=== PATIENT | female | born 1985 | race Caucasian/White ===

== ENCOUNTER 2022-08-06 00:26 | Day surgery (SDC) | payer OTHER, SELFPAY ==
[2022-07-29 13:17] VITALS: BMI 28.3
--- NOTE | 2022-07-29 13:39 | SUR.PREOP ---
Report to the Outpatient Waiting Room, entrance under the green pavilion located off [facility], at time 0630 on date 08/06/2022. Planned Procedure Time: 0830. Time changes happen often and if your time is changed the preop area will call you the afternoon before. - You and your visitor will be asked to self-screen and do not enter if you have any COVID symptoms. - Only one visitor is requested with a max of two and NO children visitors are allowed at this time. - The patient visitor may be requested to leave or wait in car when not with patient due to distancing restrictions. - A mask is optional within the hospital at this time. Patients may have clear liquids (water, carbonated beverages, clear teas, apple juice) until 3 hours prior to surgery with a maximum of 20 ounces- 0530. - No food from midnight until time of surgery - Infants may have breast milk until 4 hours before surgery, infant formula 6 hours prior to surgery. - Children will be allowed to drink immediately following surgery. If applicable, please bring a bottle or sippy cup to assist with drinking. Juice, water, soda, and popsicles are readily available. For infants on formula, please bring formula the day of surgery. Pacifiers are allowed. Take the following medications with a SIP of water the morning of surgery: Lexapro, Xanax as needed DO NOT STOP ANY OF YOUR OTHER PRESCRIPTION MEDICATIONS PRIOR TO SURGERY ?EXCEPT THE FOLLOWING Medications to discontinue per physician: Vitamins Date to take last dose: 08/02/2022 Please no make-up, nail salvadorean, hairspray, perfume, deodorant, or body powder the day of surgery. No jewelry (including any body piercings) or valuables the day of surgery, leave them at home. Please take a shower or bath the night before, or the morning of, surgery with an antibacterial soap. Wear comfortable, loose fitting clothing. Children are encouraged to wear pajamas. - Jewelry must be removed prior to entering the operating room. Rings and piercings that are not removed may be cut off. - The hospital will not accept responsibility for valuables. - Please leave all valuables, including medications, at home the day of surgery. If you are going home after surgery, a licensed starting gate driver must drive you home. - NO public transportation without another adult if you receive anesthesia. - We recommend that an adult stay with you for 24 hours following discharge. - We also recommend that you do not drive, make important decision, drink alcoholic beverages, or take any drugs that were not prescribed by your health care provider for at least 24 hours after your discharge time. For Pediatric surgeries, we recommend two adults accompany the child home. Follow any additional instructions given to you from your surgeon. If you or anyone in your household have experienced Covid symptoms in the past week, please notify your surgeon or the nurse liaison at the phone number below for possible testing. Telephone instructions given to patient and asked if any additional questions and then verbalized understanding. Patient advised to call surgeon office or pre surgery nurse liaison [phone] if any additional questions.
[2022-08-06] VITALS (9 sets, daily range): BP systolic 93–115; BP diastolic 42–71; PULSE 59–87; RESP 12–18; TEMP 36.4–36.9; O2SAT 99–100
[2022-08-06] MEDS: GABAPENTIN 300 MG CAPSULE PO (06:50)
[2022-08-06] MEDS: ACETAMINOPHEN 500 MG TABLET 1000 MG PO (06:50)
[2022-08-06] MEDS: LACTATED RINGERS 1,000 ML 30 ML IV CONT ×2 (07:00→09:09)
--- NOTE | 2022-08-06 08:07 | PM.IMHP ---
H&P: HPI History of Present Illness Date/Time: 08/06/22 08:07 Chief Complaint: I'm here to have my tubes out Narrative: Prachi presents for diagnostic laparoscopy, bilateral salpingectomy due to undesired fertility and desiring permanent sterilization Review of Systems Review of Systems: All systems reviewed & are unremarkable except as noted in HPI and below PMFSH Past Medical History Medical History (Updated 08/06/22 @ 08:09 by Tg Chau DO) Former smoker Recurrent sinusitis Family History Family History Mother Family history of mental disorder Family history of malignant neoplasm Family history of chronic obstructive pulmonary disease Father Family history of coronary artery disease Family history of heart disease in male family member before age 55 Other Hypertension Social History Social History Smoking packs per day: 1 Smoking cigarettes per day: 20.0 Years smoked: 10 Smoking pack-years: 10.00 Smoking status: Current every day smoker Tobacco type: e-cigarettes/vaping Second hand tobacco smoke exposure: No Smoking end date: 05/26/10 Additional smoking assessment comments: currently vaping daily Alcohol intake: current Alcohol use details: Very rare- once or twice per year Substance use: former Substance use type: marijuana Last use: years ago Living arrangements: with family Gender identity (if verbalized by the patient): Female Spiritual care concerns: No Meds Home Medications and Allergies Home Medications Medication Instructions Recorded Confirmed Type escitalopram oxalate 10 mg tablet 20 mg PO DAILY 04/06/19 08/06/22 History (Lexapro) alprazolam 0.25 mg tablet (Xanax) 0.25 mg PO PRN PRN ANXIETY 04/21/19 08/06/22 History ergocalciferol (vitamin D2) 1,250 See Rx Instructions .Route .COMPLEX 07/29/22 08/06/22 History mcg (50,000 unit) capsule folic acid 1 mg tablet 1 mg PO DAILY 07/29/22 08/06/22 History omega 6-ivc-nhw-fish oil 60 mg-90 1 cap PO DAILY 07/29/22 08/06/22 History mg-500 mg capsule (Fish Oil) Allergies Allergy/AdvReac Type Severity Reaction Status Date / Time No Known Allergies Allergy Verified 07/29/22 13:13 Vital Signs Vital Signs - 24 hr 08/06/22 07:29 08/06/22 07:32 Temperature 36.9 C Pulse Rate 59 L Respiratory Rate 16 Blood Pressure 96/42 L 95/45 L Pulse Oximetry 99 Oxygen Delivery Room Air Exam Const: General: comfortable and no acute distress HENMT: Mouth: Yes moist mucous membranes Eyes: General: appearance normal, both eyes and all related structures Neck: Neck: supple Thyroid: thyroid normal Resp: Effort & Inspection: normal respiratory effort Auscultation: clear to auscultation bilaterally Cardio: Rate: regular rate Rhythm: regular rhythm GI: GI Palp: Yes Soft to palpation Auscultation: normal bowel sounds Skin: General skin exam: normal color and no rashes or lesions noted Neuro: General: gait normal Speech: normal speech Motor exam (neuro): 5/5 motor strength present throughout Assessment and Plan Assessment and plan (1) Sterilization: Code(s): Z30.2 - Encounter for sterilization Status: Acute Assessment and Plan: Desires permanent sterilization Plan Diagnostic laparoscopy, bilateral salpingectomy Quality VTE Prophylaxis VTE prophylaxis: mechanical ordered
--- NOTE | 2022-08-06 08:09 | WPDHPUPDATE1 ---
History and Physical Update Update Date/Time: 08/06/22 08:09 History and Physical has been reviewed, including an updated exam of the patient. There are NO changes in the patient's condition. Risks, benefits, and alternatives have been discussed and questions answered. Patient agrees to proceed with procedure.
--- NOTE | 2022-08-06 08:11 | WPDANESEPPF ---
Anes - Initial Pre Proc Eval Procedure: Operation Date: 08/06/22 08:30 Proposed Procedures p Diagnostic Laparoscopy, Bilateral Salpingectomy - Tg Chau DO Date/Time: 08/06/22 08:11 Surgeon: Tg Chau DO Pre Op Diagnosis: desires surgical sterility Patient Data Age: 36 Gender: F Height: 1.47 m Weight: 63.2 kg Last Vital Signs Temp 36.9 C 08/06/22 07:29 Pulse 59 L 08/06/22 07:29 Resp 16 08/06/22 07:29 BP 95/45 L 08/06/22 07:32 Pulse Ox 99 08/06/22 07:29 O2 Del Method Room Air 08/06/22 07:29 Allergies Allergy/AdvReac Type Severity Reaction Status Date / Time No Known Allergies Allergy Verified 07/29/22 13:13 Home Medications Medication Instructions Recorded Confirmed Type escitalopram oxalate 10 mg tablet 20 mg PO DAILY 04/06/19 08/06/22 History (Lexapro) alprazolam 0.25 mg tablet (Xanax) 0.25 mg PO PRN PRN ANXIETY 04/21/19 08/06/22 History ergocalciferol (vitamin D2) 1,250 See Rx Instructions .Route .COMPLEX 07/29/22 08/06/22 History mcg (50,000 unit) capsule folic acid 1 mg tablet 1 mg PO DAILY 07/29/22 08/06/22 History omega 8-hxg-auf-fish oil 60 mg-90 1 cap PO DAILY 07/29/22 08/06/22 History mg-500 mg capsule (Fish Oil) Patient hx anesthesia problems: none Family hx anesthesia problems: none Results Review: All pre-operative results and documents have been reviewed as part of the pre-operative evaluation. [facility] Past Medical History Medical History Former smoker Recurrent sinusitis Surgical History Surgical History (Updated 08/06/22 @ 08:11 by Dameon Blanco MD) H/O breast biopsy Family History Family History Mother Family history of mental disorder Family history of malignant neoplasm Family history of chronic obstructive pulmonary disease Father Family history of coronary artery disease Family history of heart disease in male family member before age 55 Other Hypertension Social History Social History Smoking packs per day: 1 Smoking cigarettes per day: 20.0 Years smoked: 10 Smoking pack-years: 10.00 Smoking status: Current every day smoker Tobacco type: e-cigarettes/vaping Second hand tobacco smoke exposure: No Smoking end date: 05/26/10 Additional smoking assessment comments: currently vaping daily Alcohol intake: current Alcohol use details: Very rare- once or twice per year Substance use: former Substance use type: marijuana Last use: years ago Living arrangements: with family Gender identity (if verbalized by the patient): Female Spiritual care concerns: No Anes - Eval Final PreProcedure Day of Procedure 08/06/22 08:11 Patient weight: overweight Heart: regular rate and rhythm Lungs: clear to auscultation Airway: Mallampati scale class II Neurological: alert and oriented Last oral intake: >/= 8 hours ASA classification: II Emergent: no Anesthetic plan: proceed Anesthesia type and monitoring: general ETT and standard monitoring Results Review: All pre-operative results and documents have been reviewed as part of the pre-operative evaluation. Informed Consent: The patient's anesthetic plan and its attendant risks and benefits were discussed with the patient/family/POA. Questions were solicited and answers provided to the satisfaction of the patient/family/POA.
[2022-08-06] MEDS: BUPIVACAINE/EPINEPHRINE 0.25% 50 ML VIAL INFILTRATE (08:48)
--- NOTE | 2022-08-06 09:07 | P.OP_ITS ---
Procedure Note - Detailed Date of Procedure 08/06/22 Pre-op Diagnosis desires surgical sterility Post-op Diagnosis Same Procedure Performed Diagnostic laparoscopy, bilateral salpingectomy Surgeon Tg Chau DO All Source Intelligence Analyst Leandra Anesthesia General Indications Desires permanent sterilization Findings Normal appearing vulva and vaginal canal, medium sized cervix. Normal appearing pelvic organs, normal bowel, liver and gallbladder. Description of Procedure The patient was taken to the operating room where she was placed under general anesthesia. She was prepped and draped in the normal sterile fashion in a dorsal lithotomy position. No preoperative antibiotics were indicated. A time- out was performed a speculum was placed in the vagina. The anterior lip of the cervix was grasped with a long Allis clamp and the cervix was sequentially dilated up to accommodate a Kroner uterine manipulator. Once this was placed, the speculum was removed gloves were changed and attention was then turned to the abdomen. Skin above the umbilicus was grasped with 2 penetrating towel clamps and injected with local. A small incision was made and a Veress needle was introduced. Saline water drop test was performed to confirm intraperitoneal placement. The abdomen was then filled with CO2 to a pressure of 15 mmHg. A 5 mm trocar was then introduced under direct visualization. Survey of the abdomen revealed no evidence of bowel or vascular injury upon entry. The patient was then placed in steep Trendelenburg position. Survey of the pelvis revealed the above-mentioned findings. Additional port sites in the right and left lower quadrants were identified, injected and incised. 5 mm trocars were introduced under direct visualization. The right tube was then elevated and was cauterized and transected off using the LigaSure. The tube was then removed through the senior sales assistant trocar. The procedure was repeated in identical fashion on the left-hand side. The surgical pedicles were reinspected and found to be hemostatic. The instruments and the trocars were removed. All the CO2 insufflation was allowed to escape from the abdomen. The abdominal incisions were closed with 4-0 monocryl in a subcuticular fashion and covered with dermabond. The uterine manipulator was removed. The patient was taken to the recovery room in stable condition. All instrument and sponge counts were correct at the conclusion of the procedure. Estimated Blood Loss 5 IV Fluids 1,300 Drains No Packing No Pathology Yes (bilateral fallopian tubes) Complications No immediate complications Condition Stable Disposition PACU
--- NOTE | 2022-08-06 10:33 | SUR.PHASEII ---
1033- Call to Dr. Blanco for Ibuprofen per patient's request. Per Dr. Blanco order 600MG oral Ibuprofen once.
[2022-08-06] MEDS: IBUPROFEN 600 MG TABLET PO (10:44)
== END 2022-08-06 10:53 | disposition home or self-care (01) ==
PROVIDERS: PCP Family Medicine; Visit Provider Obstetrics & Gynecology Gynecologic Oncology
PROC: (CPT 49320; principal; 2022-08-06 08:30)
DX: Z30.2 Encounter for sterilization (principal); F17.290 Nicotine dependence, other tobacco product, uncomplicated
CPT/HCPCS: 58661; 88302; A9270; J0330; J1100; J2250; J2405; J2704; J3010; J7030; J7120

== ENCOUNTER 2023-01-12 13:59 | Emergency (ER) | payer OTHER, SELFPAY ==
[2023-01-12 14:14] VITALS: BP 108/55; PULSE 79; RESP 18; TEMP 36.9; O2SAT 97
--- NOTE | 2023-01-12 14:28 | ED.GENADULT ---
HPI - General Adult General Chief complaint: Unspecified Stated complaint: well adult check Time Seen by Provider: 01/12/23 14:28 Source: patient Mode of arrival: ambulatory Limitations: no limitations History of Present Illness HPI narrative: 37-year-old female patient presents to the [facility] requesting a work note. Patient states nothing is wrong with her today she is requesting a note stating she was seen at this facility today because her employer requires it. Patient does not have any complaints. Patient states she does not want to get written up which is why she is requesting a note. Related Data Home Medications Medication Instructions Recorded Confirmed escitalopram oxalate 10 mg tablet 20 mg PO DAILY 04/06/19 01/12/23 (Lexapro) alprazolam 0.25 mg tablet (Xanax) 0.25 mg PO PRN PRN ANXIETY 04/21/19 01/12/23 ergocalciferol (vitamin D2) 1,250 See Rx Instructions .Route .COMPLEX 07/29/22 08/06/22 mcg (50,000 unit) capsule folic acid 1 mg tablet 1 mg PO DAILY 07/29/22 01/12/23 omega 7-vty-ifc-fish oil 60 mg-90 1 cap PO DAILY 07/29/22 08/06/22 mg-500 mg capsule (Fish Oil) Allergies Allergy/AdvReac Type Severity Reaction Status Date / Time No Known Allergies Allergy Verified 01/12/23 14:18 Review of Systems Review of Systems: CONSTITUTIONAL: Denies fever, chills, or sweats. EYES: Denies visual changes, redness, or discharge. ENT: Denies rhinorrhea, congestion, sore throat, or otalgia. CARDIOVASCULAR: Denies chest pain, palpitations, or edema. RESPIRATORY: Denies cough or dyspnea. GASTROINTESTINAL: Denies abdominal pain, nausea, vomiting, or diarrhea. GENITOURINARY: Denies dysuria or hematuria. SKIN: Denies rash or itching. MUSCULOSKELETAL: Denies back pain, joint pain, or myalgia. NEUROLOGIC: Denies headache, numbness, or weakness. PSYCHIATRIC: Denies anxiety or depression. [facility] Past Medical History Medical History Former smoker Recurrent sinusitis Surgical History Surgical History H/O breast biopsy Family History Family History Mother Family history of mental disorder Family history of malignant neoplasm Family history of chronic obstructive pulmonary disease Father Family history of coronary artery disease Family history of heart disease in male family member before age 55 Other Hypertension Social History Social History Smoking packs per day: 1 Smoking cigarettes per day: 20.0 Years smoked: 10 Smoking pack-years: 10.00 Smoking status: Current every day smoker Tobacco type: e-cigarettes/vaping Second hand tobacco smoke exposure: No Smoking end date: 05/26/10 Additional smoking assessment comments: currently vaping daily Alcohol intake: current Alcohol use details: Very rare- once or twice per year Substance use: former Substance use type: marijuana Last use: years ago Living arrangements: with family Gender identity (if verbalized by the patient): Female Spiritual care concerns: No Comments At the time of my signature I agree with nursing past medical history, surgical, social, and family history. There is no relevant family history pertinent to the presenting complaint. Exam Narrative: GENERAL: Well-appearing, well-nourished, and in no acute distress. HEAD: Normocephalic, atraumatic. EYES: PERRLA and EOMI. ENT: Nares clear, no rhinorrhea or epistaxis. Mucous membranes moist. NECK: Supple. No lymphadenopathy CHEST: Clear to auscultation. No respiratory distress. HEART: Regular rate and rhythm. No murmur heard. Normal peripheral pulses. ABDOMEN: Soft, nontender, nondistended, normal active bowel sounds. EXTREMITIES: Normal range of motion. No edema. SKIN: Warm, dry, no rash. NEURO: No focal deficits. Alert and
== END 2023-01-12 14:38 | disposition home or self-care (01) ==
PROVIDERS: Emergency Provider Nurse Practitioner Family; PCP Family Medicine
DX: Z00.00 Encounter for general adult medical examination without abnormal findings (principal); F17.290 Nicotine dependence, other tobacco product, uncomplicated
CPT/HCPCS: 99211; G0463

== ENCOUNTER 2023-05-20 11:23 | Emergency (ER) | payer OTHER, SELFPAY ==
--- NOTE | ~2023-05-20 | XR_ITS ---
EXAMINATION: XR chest 2V 05/20/2023 12:19 INDICATION: Chest pain and shortness of breath PROCEDURE: 2 view chest COMPARISON: No prior studies for comparison. FINDINGS: The lungs are clear. The cardiomediastinal silhouette is within normal limits. There are no pleural effusions. There is no pneumothorax suspected. IMPRESSION: 1: NO ACUTE CARDIOPULMONARY DISEASE. Reviewed, dictated and finalized at location L. HOUSE WORKER
[2023-05-20 11:48] VITALS: BP 107/52; PULSE 89; RESP 16; TEMP 37; O2SAT 98
--- NOTE | 2023-05-20 12:04 | ECG_ITS ---
Measurements Intervals [place] Rate: 71 P: 17 WA: 120 QRS: 21 QRSD: 86 T: 0 QT: 369 QTc: 403 Interpretive Statements SINUS RHYTHM NONSPECIFIC T-WAVE ABNORMALITY NO PREVIOUS ECG AVAILABLE FOR COMPARISON Electronically Signed On 05-20-2023 16:07:11 CLINICAL CYTOGENETICIST SCIENTIST by Roman William M.D.
--- NOTE | 2023-05-20 12:04 | ED.URI ---
HPI - URI/Sore Throat General Chief Complaint: Upper Respiratory Infection Stated Complaint: Chest Pain, Exposure to Flu Time Seen by Provider: 05/20/23 12:00 Source: patient Mode of arrival: ambulatory Limitations: no limitations History of Present Illness HPI Narrative: Prachi is a 37-year-old female patient presenting to the clinic today with complaints of mild shortness of breath and chest discomfort across her chest. States she has been exposed to flu B. Is having a cough and nasal congestion as well. No known fever or chills. SpO2 98% on room air patient is able to speak in full sentences. MD elicited complaint: sore throat and nasal congestion Related Data Home Medications Medication Instructions Recorded Confirmed escitalopram oxalate 10 mg tablet 20 mg PO DAILY 04/06/19 05/20/23 (Lexapro) alprazolam 0.25 mg tablet (Xanax) 0.25 mg PO PRN PRN ANXIETY 04/21/19 05/20/23 ergocalciferol (vitamin D2) 1,250 See Rx Instructions .Route .COMPLEX 07/29/22 05/20/23 mcg (50,000 unit) capsule omega 4-nzt-vjw-fish oil 60 mg-90 1 cap PO DAILY 07/29/22 05/20/23 mg-500 mg capsule (Fish Oil) Allergies Allergy/AdvReac Type Severity Reaction Status Date / Time No Known Allergies Allergy Verified 05/20/23 12:00 Review of Systems Review of Systems: Pertinent positives per HPI. Patient denies any fever, chills, rash, headache, visual changes, dizziness, chest pain, palpitations, nausea, vomiting, diarrhea, constipation, abdominal pain, or any urinary issues. [facility] Past Medical History Medical History Former smoker Recurrent sinusitis Surgical History Surgical History H/O breast biopsy Family History Family History Mother Family history of mental disorder Family history of malignant neoplasm Family history of chronic obstructive pulmonary disease Father Family history of coronary artery disease Family history of heart disease in male family member before age 55 Other Hypertension Social History Social History (Reviewed 05/20/23 @ 12:31 by RO Wyatt Smoking packs per day: 1 Smoking cigarettes per day: 20.0 Years smoked: 10 Smoking pack-years: 10.00 Smoking status: Current every day smoker Tobacco type: e-cigarettes/vaping Second hand tobacco smoke exposure: No Smoking end date: 05/26/10 Additional smoking assessment comments: currently vaping daily Alcohol intake: current Alcohol use details: Very rare- once or twice per year Substance use: former Substance use type: marijuana Last use: years ago Living arrangements: with family Gender identity (if verbalized by the patient): Female Spiritual care concerns: No Comments At the time of my signature, I reviewed and agree with the nursing past medical, surgical, social, and family history. There is no relevant family history pertinent to the patient complaint. Exam Narrative: General: Well-developed, well nourished, in no apparent distress Head: Normocephalic, atraumatic Eyes: Pupils equally round and reactive to light bilaterally, EOM intact, sclera and conjunctive clear, no discharge, lids normal Ears: TMs intact and clear, ear canals clear, no drainage, grossly hearing normal. Nose: Nares patent, clear nasal discharge, no inflammation, no sinus tenderness. Mouth: Oral pharynx without lesions or masses, good dentition, MMM. Neck: Supple, trachea midline, no enlargement of anterior or posterior cervical nodes, no thyroid masses or goiter palpable. Cardio: Regular rate and rhythm, s1 and s2 normal, no murmur appreciated. Resp: Clear to auscultation bilaterally, no rhonchi, rales, wheezing or rubs Course Course Emergency Course: Portions of this record may have been created with voice recognition softwar
== END 2023-05-20 12:56 | disposition home or self-care (01) ==
PROVIDERS: Emergency Provider Nurse Practitioner Family
DX: B34.9 Viral infection, unspecified (principal); J06.9 Acute upper respiratory infection, unspecified; Z20.822 Contact with and (suspected) exposure to COVID-19; F17.290 Nicotine dependence, other tobacco product, uncomplicated
CPT/HCPCS: 71046; 87426; 87804; 93005; 99213; C9803; G0463